=== PATIENT | female | born 1970 | race Caucasian/White ===

== ENCOUNTER 2016-06-30 03:58 | Emergency (ER) | payer OTHER ==
[2016-06-30] MEDS ORDERED: PENICILLIN V POTASSIUM 500 MG TAB As Ordered ONE (05:39)
--- NOTE | 2016-06-30 05:53 | EDDOCDS ---
Physician Documentation [facility] Name: Kamilla Bravo Age: 46 yrs Sex: Female : 1970 Arrival Date: 06/30/2016 Time: 03:58 Bed 9 Private MD: Ron Pulido P. Disposition: 06/30/16 05:44 Discharged to Home/Self Care. Impression: Acute pharyngitis. - Condition is Stable. - Prescriptions for penicillin V potassium 500 mg Oral Tablet - take 1 tablet by ORAL route 4 times per day for 10 days; 40 tablet. - Medication Reconciliation, Local Pharmacy Hours form. - Follow up: Ron Pulido; When: Call to arrange an appointment; Reason: Recheck today's complaints. - Problem is new. - Symptoms have improved. Historical: - Allergies: No known drug Allergies; - Home Meds: 1. Ibuprofen 220 mg Oral 1 tab (Last dose: 06/30/2016 02:00) - PMHx: none; - PSHx: Tonsillectomy; - Social history: Smoking status: Patient states former smoker of tobacco. No barriers to communication noted, The patient speaks fluent Niuean, Speaks appropriately for age. - Family history: Not pertinent. - : The pt / caregiver states he / she is not on anticoagulants. Home medication list is obtained from the patient. - Exposure Risk Screening:: None identified. 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 4 in. (162.56 cm); Pain 8/10; 05:50 BP 132 / 78; Pulse 88; Resp 18; Temp 100.0(TE); Pulse Ox 98% on R/A; Pain 7/10; braxton 04:05 Body Mass Index 29.18 (77.11 kg, 162.56 cm) ko2 MDM: 04:18 [facility] Payment Agreement was scanned into [employer] and attached to record. [facility] 05:38 Penicillin VK 1000 mg PO once ordered. [facility] 05:39 Financial registration complete. [facility] Administered Medications: 05:42 Drug: Penicillin VK 1000 mg [penicillin V potassium 250 mg tablet (4 tabs)] Route: PO; [facility] Signatures: Karin Almaguer, RN RN Samson Fields, DO cs11 Chante Thakkar LPN LPN Kelsey John RN RN Dena Handy [facility] The chart was reviewed and I authenticate all verbal orders and agree with the evaluation and treatment provided.Corrections: (The following items were deleted from the chart) 05:35 05:35 Strep Screen, Nursing ordered. jun Attachments: 04:18 [facility] Payment Agreement [facility] MTDD
--- NOTE | 2016-06-30 05:53 | EDDOCDS ---
Nurse's Notes [facility] Name: Kamilla Bravo Age: 46 yrs Sex: Female : 1970 Arrival Date: 06/30/2016 Time: 03:58 Bed 9 Private MD: Ron Pulido P. Diagnosis: Acute pharyngitis Presentation: 06/30 04:07 Presenting complaint: Patient states: developed "swollen throat" yesterday. it "hurts ko2 to swallow. I had chills and body aches last night and a headache that wouldn't go away". Risk factors: Stridor is not present. Drooling is not present. Shortness of breath is not present. Cellulitis is not present. Adult Sepsis Screening: The patient does not have new or worsening altered mentation. Patient's respiratory rate is less than 22. Systolic blood pressure is greater than 100. Patient has a qSOFA score of 0- Negative Sepsis Screen. Suicide/Homicide risk assessment- the patient denies having any suicidal and/or homicidal ideations and does not present with any other emotional, behavioral or mental health complaints. Status: The patient is a dependent. retired. Transition of care: patient was not received from another setting of care. 04:07 Acuity: DEIRDRE Level 4 ko2 04:07 Method Of Arrival: Walkin/Carried/Asstd ko2 Triage Assessment: 04:10 General: Appears uncomfortable, Behavior is appropriate for age, cooperative. Pain: ko2 Location: throat, head and body aches Pain currently is 8 out of 10 on a pain scale. HIV screening NA for this visit Offered previously. Neurological: Level of Consciousness is awake, alert. EENT: Reports pain when swallowing Pain is 8 out of 10 on a pain scale. Respiratory: Airway is patent Respiratory effort is even, unlabored. Derm: Skin is normal. 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 Ibuprofen 220 mg Oral 1 tab (Last dose: 06/30/2016 02:00) - PMHx: none; - PSHx: Tonsillectomy; - Social history: Smoking status: Patient states former smoker of tobacco. No barriers to communication noted, The patient speaks fluent Slovak, Speaks appropriately for age. - Family history: Not pertinent. - : The pt / caregiver states he / she is not on anticoagulants. Home medication list is obtained from the patient. - Exposure Risk Screening:: None identified. Screenin:11 Screening information is obtained from the patient. Fall risk: No risks identified. ko2 Assistance ADL's: requires no assistance with activities of daily living. Abuse/DV Screen: The patient / caregiver reports he/she is: not in a situation that causes fear, pain or injury. Nutritional screening: No deficits noted. Advance Directives: Currently, there is no health care proxy. There is no active DNR order. There is no living will. There is no Power of Cheese Tester. home support is adequate. Assessment: 05:31 Adult Sepsis Screening: The patient does not have new or worsening altered mentation. yadiel Patient's respiratory rate is less than 22. Systolic blood pressure is greater than 100. Patient has a qSOFA score of 0- Negative Sepsis Screen. General: Appears uncomfortable, Behavior is cooperative, pleasant. Pain: Location: throat Pain currently is 8 out of 10 on a pain scale. Pain began gradually Aggravated by eating, drinking. Neurological: No deficits noted. EENT: Throat is reddened has enlarged tonsils on right on left bilaterally. Cardiovascular: Capillary refill < 3 seconds Heart tones S1 S2 present. Respiratory: Airway is patent Respiratory effort is even, unlabored, Respiratory pattern is regular, symmetrical, Breath sounds are clear bilaterally. GI: No deficits noted. : No deficits noted. Derm: Skin is pink, warm & dry. 05:51 Reassessment: Patient appears in no apparent distress at this time. [facility] Vital Signs: 04:05 BP 126 / 75; Pulse 92; Resp 18; Temp 99.1(O); Pulse Ox 97% ; Weight 77.11 kg; Height 5 ko2 ft. 4 in. (162.56 cm); Pain 8/10; 05:50 BP 132 / 78; Pulse 88; Resp 18; Temp 100.0(TE); Pulse Ox 98% on R/A; Pain 7/10; braxton 04:05 Body Mass Index 29.18 (77.11 kg, 162.56 cm) [facility] Vitals: 04:05 Log In Time: June 30, 2016 at 03:58. 2 ED Course: 03:59 Patient visited by Montondo, Galileo, Reg. pm4 03:59 Patient moved to Waiting pm4 04:00 Ron Pulido is Private Physician. pm4 04:04 Patient moved to Triage 1 ko2 04:09 Triage Initiated ko2 04:12 Patient moved to Waiting ko2 04:18 [facility] Payment Agreement was scanned into [employer] and attached to record. [facility] 05:26 Kelsey Kemp,RN is Primary Nurse. jun 05:26 Patient moved to 9 jun 05:31 The patient / caregiver is instructed regarding the plan of care and ED course. Patient yadiel has correct armband on for positive identification. Bed in low position. Call light in reach. 05:34 Samson Shen DO is Attending Physician. cs11 05:34 Patient visited by Samson Shen DO. cs11 05:44 Ron Pulido is Referral Physician. cs11 05:50 Patient visited by Katherine Dempsey PCA. braxton 05:52 Patient visited by Chante Thakkar LPN. slm 05:52 No IV's were initiated during this patient's visit. No procedures done that require slm assistance. Administered Medications: 05:42 Drug: Penicillin VK 1000 mg [penicillin V potassium 250 mg tablet (4 tabs)] Route: PO; slm Order Results: There are currently no results for this order. Outcome: 05:44 Discharge ordered by Provider. cs11 05:51 Discharge Assessment: Patient awake, alert and oriented x 3. No cognitive and/or slm functional deficits noted. Patient verbalized understanding of disposition instructions. patient administered narcotics - no. The following High Risk Discharge criteria are identified: None. Discharged to home ambulatory. Condition: good. Discharge instructions given to patient, Instructed on discharge instructions, follow up and referral plans. medication usage, Demonstrated understanding of instructions, medications, Pt was receptive of discharge instructions/ teaching. Prescriptions given X 1. No special radiology studies were completed. Property :Personal belongings accompany Pt. 05:52 Patient left the ED. slm Signatures: Karin Almaguer RN RN jan Ewald, Destiny, PCA CHILDREN LIBRARIAN braxton Samson Shen DO DO cs11 Chante Thakkar LPN LPN [facility] Kelsey Kemp RN RN ko2 Hook, Sandra [facility] Galileo Arana, Reg Reg pm4 MTDD
--- NOTE | 2016-07-02 06:54 | EDDOCDS ---
Physician Documentation [facility] Name: Kamilla Bravo Age: 46 yrs Sex: Female : 1970 Arrival Date: 06/30/2016 Time: 03:58 Bed 9 Private MD: Ron Pulido P. Disposition: 06/30/16 05:44 Discharged to Home/Self Care. Impression: Acute pharyngitis. - Condition is Stable. - Prescriptions for penicillin V potassium 500 mg Oral Tablet - take 1 tablet by ORAL route 4 times per day for 10 days; 40 tablet. - Medication Reconciliation, Local Pharmacy Hours form. - Follow up: Ron Pulido; When: Call to arrange an appointment; Reason: Recheck today's complaints. - Problem is new. - Symptoms have improved. Historical: - Allergies: No known drug Allergies; - Home Meds: 1. Ibuprofen 220 mg Oral 1 tab (Last dose: 06/30/2016 02:00) - PMHx: none; - PSHx: Tonsillectomy; - Social history: Smoking status: Patient states former smoker of tobacco. No barriers to communication noted, The patient speaks fluent Tajik, Speaks appropriately for age. - Family history: Not pertinent. - : The pt / caregiver states he / she is not on anticoagulants. Home medication list is obtained from the patient. - Exposure Risk Screening:: None identified. 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 4 in. (162.56 cm); Pain 8/10; 05:50 BP 132 / 78; Pulse 88; Resp 18; Temp 100.0(TE); Pulse Ox 98% on R/A; Pain 7/10; braxton 04:05 Body Mass Index 29.18 (77.11 kg, 162.56 cm) ko2 MDM: 04:18 [facility] Payment Agreement was scanned into [employer] and attached to record. [facility] 05:38 Penicillin VK 1000 mg PO once ordered. [facility] 05:39 Financial registration complete. [facility] 14:30 T-Sheet-- Draft Copy was scanned into [employer] and attached to record. gb Administered Medications: 05:42 Drug: Penicillin VK 1000 mg [penicillin V potassium 250 mg tablet (4 tabs)] Route: PO; [facility] Signatures: Karin Almaguer RN RN Alysa Ly, Reg Reg Samson Rolle, DO HOLDER cs11 Chante Thakkar LPN AIRCRAFT ELECTRICIAN [facility] Kelsey Kemp RN RN ko2 Dena Rich [facility] The chart was reviewed and I authenticate all verbal orders and agree with the evaluation and treatment provided.Corrections: (The following items were deleted from the chart) 05:35 05:35 Strep Screen, Nursing ordered. jun Attachments: 04:18 [facility] Payment Agreement [facility] 14:30 T-Sheet-- Draft Copy Chart Complete MTDD
--- NOTE | 2016-07-02 06:54 | EDDOCDS ---
Nurse's Notes [facility] Name: Kamilla Bravo Age: 46 yrs Sex: Female : 1970 Arrival Date: 06/30/2016 Time: 03:58 Bed 9 Private MD: Ron Pulido P. Diagnosis: Acute pharyngitis Presentation: 06/30 04:07 Presenting complaint: Patient states: developed "swollen throat" yesterday. it "hurts ko2 to swallow. I had chills and body aches last night and a headache that wouldn't go away". Risk factors: Stridor is not present. Drooling is not present. Shortness of breath is not present. Cellulitis is not present. Adult Sepsis Screening: The patient does not have new or worsening altered mentation. Patient's respiratory rate is less than 22. Systolic blood pressure is greater than 100. Patient has a qSOFA score of 0- Negative Sepsis Screen. Suicide/Homicide risk assessment- the patient denies having any suicidal and/or homicidal ideations and does not present with any other emotional, behavioral or mental health complaints. Status: The patient is a dependent. retired. Transition of care: patient was not received from another setting of care. 04:07 Acuity: DEIRDRE Level 4 ko2 04:07 Method Of Arrival: Walkin/Carried/Asstd ko2 Triage Assessment: 04:10 General: Appears uncomfortable, Behavior is appropriate for age, cooperative. Pain: ko2 Location: throat, head and body aches Pain currently is 8 out of 10 on a pain scale. HIV screening NA for this visit Offered previously. Neurological: Level of Consciousness is awake, alert. EENT: Reports pain when swallowing Pain is 8 out of 10 on a pain scale. Respiratory: Airway is patent Respiratory effort is even, unlabored. Derm: Skin is normal. 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 Ibuprofen 220 mg Oral 1 tab (Last dose: 06/30/2016 02:00) - PMHx: none; - PSHx: Tonsillectomy; - Social history: Smoking status: Patient states former smoker of tobacco. No barriers to communication noted, The patient speaks fluent Japanese, Speaks appropriately for age. - Family history: Not pertinent. - : The pt / caregiver states he / she is not on anticoagulants. Home medication list is obtained from the patient. - Exposure Risk Screening:: None identified. Screenin:11 Screening information is obtained from the patient. Fall risk: No risks identified. ko2 Assistance ADL's: requires no assistance with activities of daily living. Abuse/DV Screen: The patient / caregiver reports he/she is: not in a situation that causes fear, pain or injury. Nutritional screening: No deficits noted. Advance Directives: Currently, there is no health care proxy. There is no active DNR order. There is no living will. There is no Power of Narrow Gauge Engineer. home support is adequate. Assessment: 05:31 Adult Sepsis Screening: The patient does not have new or worsening altered mentation. yadiel Patient's respiratory rate is less than 22. Systolic blood pressure is greater than 100. Patient has a qSOFA score of 0- Negative Sepsis Screen. General: Appears uncomfortable, Behavior is cooperative, pleasant. Pain: Location: throat Pain currently is 8 out of 10 on a pain scale. Pain began gradually Aggravated by eating, drinking. Neurological: No deficits noted. EENT: Throat is reddened has enlarged tonsils on right on left bilaterally. Cardiovascular: Capillary refill < 3 seconds Heart tones S1 S2 present. Respiratory: Airway is patent Respiratory effort is even, unlabored, Respiratory pattern is regular, symmetrical, Breath sounds are clear bilaterally. GI: No deficits noted. : No deficits noted. Derm: Skin is pink, warm & dry. 05:51 Reassessment: Patient appears in no apparent distress at this time. [facility] Vital Signs: 04:05 BP 126 / 75; Pulse 92; Resp 18; Temp 99.1(O); Pulse Ox 97% ; Weight 77.11 kg; Height 5 ko2 ft. 4 in. (162.56 cm); Pain 8/10; 05:50 BP 132 / 78; Pulse 88; Resp 18; Temp 100.0(TE); Pulse Ox 98% on R/A; Pain 7/10; braxton 04:05 Body Mass Index 29.18 (77.11 kg, 162.56 cm) [facility] Vitals: 04:05 Log In Time: June 30, 2016 at 03:58. 2 ED Course: 03:59 Patient visited by Montondo, Galileo, Reg. pm4 03:59 Patient moved to Waiting pm4 04:00 Ron Pulido is Private Physician. pm4 04:04 Patient moved to Triage 1 ko2 04:09 Triage Initiated ko2 04:12 Patient moved to Waiting ko2 04:18 [facility] Payment Agreement was scanned into [employer] and attached to record. [facility] 05:26 Kelsey Kemp,RN is Primary Nurse. jun 05:26 Patient moved to 9 jun 05:31 The patient / caregiver is instructed regarding the plan of care and ED course. Patient yadiel has correct armband on for positive identification. Bed in low position. Call light in reach. 05:34 Samson Shen DO is Attending Physician. cs11 05:34 Patient visited by Samson Shen DO. cs11 05:44 Ron Pulido is Referral Physician. cs11 05:50 Patient visited by Katherine Dempsey PCA. braxton 05:52 Patient visited by Chante Thakkar LPN. slm 05:52 No IV's were initiated during this patient's visit. No procedures done that require slm assistance. 14:30 T-Sheet-- Draft Copy was scanned into [employer] and attached to record. gb Administered Medications: 05:42 Drug: Penicillin VK 1000 mg [penicillin V potassium 250 mg tablet (4 tabs)] Route: PO; slm Order Results: There are currently no results for this order. Outcome: 05:44 Discharge ordered by Provider. cs11 05:51 Discharge Assessment: Patient awake, alert and oriented x 3. No cognitive and/or slm functional deficits noted. Patient verbalized understanding of disposition instructions. patient administered narcotics - no. The following High Risk Discharge criteria are identified: None. Discharged to home ambulatory. Condition: good. Discharge instructions given to patient, Instructed on discharge instructions, follow up and referral plans. medication usage, Demonstrated understanding of instructions, medications, Pt was receptive of discharge instructions/ teaching. Prescriptions given X 1. No special radiology studies were completed. Property :Personal belongings accompany Pt. 05:52 Patient left the ED. slm Signatures: Karin Almaguer RN RN jan Barnhardt, Gloria, Reg Reg gb Katherine Dempsey PCA SURGERY SCHEDULING COORDINATOR braxton Samson Sehn DO DO cs11 Chante Thakkar LPN LPN slKelsey John,MARISOL RN ko2 Dena Rich slGalileo Whitney, Reg Reg pm4 Chart Complete MTDD
--- NOTE | 2016-07-02 06:54 | EDDOCDS ---
Physician Documentation [facility] Name: Kamilla Bravo Age: 46 yrs Sex: Female : 1970 Arrival Date: 06/30/2016 Time: 03:58 Bed 9 Private MD: Ron Pulido P. Disposition: 06/30/16 05:44 Discharged to Home/Self Care. Impression: Acute pharyngitis. - Condition is Stable. - Prescriptions for penicillin V potassium 500 mg Oral Tablet - take 1 tablet by ORAL route 4 times per day for 10 days; 40 tablet. - Medication Reconciliation, Local Pharmacy Hours form. - Follow up: Ron Pulido; When: Call to arrange an appointment; Reason: Recheck today's complaints. - Problem is new. - Symptoms have improved. Historical: - Allergies: No known drug Allergies; - Home Meds: 1. Ibuprofen 220 mg Oral 1 tab (Last dose: 06/30/2016 02:00) - PMHx: none; - PSHx: Tonsillectomy; - Social history: Smoking status: Patient states former smoker of tobacco. No barriers to communication noted, The patient speaks fluent Norwegian, Speaks appropriately for age. - Family history: Not pertinent. - : The pt / caregiver states he / she is not on anticoagulants. Home medication list is obtained from the patient. - Exposure Risk Screening:: None identified. 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 4 in. (162.56 cm); Pain 8/10; 05:50 BP 132 / 78; Pulse 88; Resp 18; Temp 100.0(TE); Pulse Ox 98% on R/A; Pain 7/10; braxton 04:05 Body Mass Index 29.18 (77.11 kg, 162.56 cm) ko2 MDM: 04:18 [facility] Payment Agreement was scanned into [employer] and attached to record. [facility] [address] 05:38 Penicillin VK 1000 mg PO once ordered. [facility] 05:39 Financial registration complete. [facility] [address] 14:30 T-Sheet-- Draft Copy was scanned into [employer] and attached to record. gb Administered Medications: 05:42 Drug: Penicillin VK 1000 mg [penicillin V potassium 250 mg tablet (4 tabs)] Route: PO; [facility] Signatures: Karin Almaguer RN RN Alysa Ly, Reg Reg Samson Rolle, DO HOLDER cs11 Chante Thakkar LPN GOLF CLUB REPAIRER [facility] Kelsey Kemp RN RN ko2 Dena Rich [facility] [address] The chart was reviewed and I authenticate all verbal orders and agree with the evaluation and treatment provided.Corrections: (The following items were deleted from the chart) 05:35 05:35 Strep Screen, Nursing ordered. jun Attachments: 04:18 [facility] Payment Agreement [facility] [address] 14:30 T-Sheet-- Draft Copy Chart Complete MTDD
== END 2016-06-30 05:52 | disposition home or self-care (01) ==
LOC: M ED 03:58
DX: J02.9 Acute pharyngitis, unspecified (principal); Z90.89 Acquired absence of other organs; Z87.891 Personal history of nicotine dependence

== ENCOUNTER → 2018-03-12 | Outpatient (REF) | payer OTHER ==
[2018-03-12 14:42] LABS: CHLAMYDIA DNA AMPLIFICATION NEGATIVE (NEGATIVE); GC DNA AMPLIFICATION NEGATIVE (NEGATIVE)
[2018-03-16 14:16] LABS: HPV HYBRID CAPTURE II Negative (Negative)
== END ==
LOC: M LAB REF 12:52
DX: Z01.419 Encounter for gynecological examination (general) (routine) without abnormal findings (principal)

== ENCOUNTER → 2019-06-21 | Outpatient (REF) | payer OTHER ==
[2019-06-21 11:50] LABS: BASO # 0.1 10^3/uL (0.0-0.2); BASO % 0.8 % (0.0-1.0); EOS # 0.2 10^3/uL (0.0-0.5); EOS % 2.6 % (0.0-3.0); HEMATOCRIT 42.9 % (36.0-47.0); HEMOGLOBIN 13.4 g/dl (12.0-15.5); LYMPH # 1.8 10^3/uL (1.5-5.0); LYMPH % 28.3 % (24.0-44.0); MEAN CORPUSCULAR HEMOGLOBIN 29.7 pg (27.0-33.0); MEAN CORPUSCULAR HGB CONC 31.2 g/dl (32.0-36.5); MEAN CORPUSCULAR VOLUME 95.1 fl (80.0-96.0); MONO # 0.5 10^3/uL (0.0-0.8); MONO % 7.5 % (0.0-5.0); NEUTROPHILS # 3.9 10^3/uL (1.5-8.5); NEUTROPHILS % 60.5 % (36.0-66.0); RED BLOOD COUNT 4.51 10^6/uL (4.00-5.40); WHITE BLOOD COUNT 6.4 10^3/uL (4.0-10.0)
[2019-06-21 12:03] LABS: ALBUMIN 3.7 GM/DL (3.2-5.2); ALT/SGPT 24 U/L (12-78); BILIRUBIN,TOTAL 0.6 MG/DL (0.2-1.0); BLOOD UREA NITROGEN 17 MG/DL (7-18); CALCIUM LEVEL 8.6 MG/DL (8.5-10.1); CARBON DIOXIDE LEVEL 26 MEQ/L (21-32); CHLORIDE LEVEL 107 MEQ/L (98-107); CHOLESTEROL LEVEL 186 MG/DL (<200); CHOLESTEROL RISK RATIO 3.321 (<5); CREATININE FOR GFR 0.87 MG/DL (0.55-1.30); GLOMERULAR FILTRATION RATE > 60.0 (>58); GLUCOSE, FASTING 103 MG/DL (70-100); HDL CHOLESTEROL 56 MG/DL (>40); LDL CHOLESTEROL 117 MG/DL (<100); NON-HDL-C 130 MG/DL; POTASSIUM SERUM 4.1 MEQ/L (3.5-5.1); SODIUM LEVEL 140 MEQ/L (136-145); TOTAL PROTEIN 7.4 GM/DL (6.4-8.2); TRIGLYCERIDES LEVEL 66 MG/DL (<150)
== END ==
LOC: M SFHCLERA 08:06
PROVIDERS: ATTEND Nurse Practitioner Family
DX: Z13.220 Encounter for screening for lipoid disorders (principal); R03.0 Elevated blood-pressure reading, without diagnosis of hypertension

== ENCOUNTER → 2021-01-15 | Outpatient (REF) | payer OTHER | LOC: M SFHCLERA 16:26 | PROVIDERS: ATTEND Nurse Practitioner Family | DX: Z12.4 Encounter for screening for malignant neoplasm of cervix (principal) | CPT/HCPCS: G0123; G0463 ==

== ENCOUNTER → 2021-07-25 | Outpatient (CLI) | payer OTHER | LOC: M WHC 07:58 | PROVIDERS: ATTEND Nurse Practitioner Family | DX: Z12.31 Encounter for screening mammogram for malignant neoplasm of breast (principal) ==

== ENCOUNTER → 2021-10-10 | Outpatient (CLI) | payer OTHER | LOC: M SLEEP 20:00 | PROVIDERS: ATTEND Nurse Practitioner Acute Care | DX: G47.33 Obstructive sleep apnea (adult) (pediatric) (principal) ==

== ENCOUNTER → 2022-07-22 | Outpatient (CLI) | payer OTHER ==
[2022-07-22 10:55] LABS: BASO % 0.8 % (0.0-1.0); EOS # 0.1 10^3/uL (0.0-0.5); EOS % 2.5 % (0.0-3.0); HEMATOCRIT 41.9 % (36.0-47.0); HEMOGLOBIN 13.2 g/dl (12.0-15.5); LYMPH % 39.3 % (24.0-44.0); MEAN CORPUSCULAR HEMOGLOBIN 29.3 pg (27.0-33.0); MEAN CORPUSCULAR HGB CONC 31.5 g/dl (32.0-36.5); MEAN CORPUSCULAR VOLUME 93.1 fl (80.0-96.0); MONO # 0.6 10^3/uL (0.0-0.8); MONO % 11.6 % (2.0-8.0); NEUTROPHILS # 2.3 10^3/uL (1.5-8.5); NEUTROPHILS % 44.8 % (36.0-66.0); PLATELET COUNT, AUTOMATED 136 10^3/uL (150-450); WHITE BLOOD COUNT 5.2 10^3/uL (4.0-10.0)
[2022-07-22 12:43] LABS: ALBUMIN 3.6 G/DL (3.2-5.2); ALKALINE PHOSPHATASE 85 U/L (46-116); ALT/SGPT 50 U/L (7.0-40); AST/SGOT 30 U/L (<34); BILIRUBIN,TOTAL 0.5 MG/DL (0.3-1.2); BLOOD UREA NITROGEN 13 MG/DL (9-23); CALCIUM LEVEL 9.2 MG/DL (8.5-10.1); CARBON DIOXIDE LEVEL 29 MMOL/L (20-31); CHLORIDE LEVEL 106 MMOL/L (98-107); CHOLESTEROL LEVEL 166 MG/DL (<200); CHOLESTEROL RISK RATIO 3.95 (<5); CREATININE FOR GFR 0.76 MG/DL (0.55-1.30); GLOMERULAR FILTRATION RATE > 60.0 (>51); GLUCOSE, FASTING 97 MG/DL (60-100); LDL CHOLESTEROL 103.4 MG/DL (<100); NON-HDL-C 124 MG/DL; POTASSIUM SERUM 4.2 MMOL/L (3.5-5.1); SODIUM LEVEL 139 MMOL/L (136-145); TOTAL PROTEIN 7.2 G/DL (5.7-8.2); TRIGLYCERIDES LEVEL 103 MG/DL (<150)
== END ==
LOC: M PLALAB 08:56
PROVIDERS: ATTEND Student in an Organized Health Care Education/Training Program
DX: R03.0 Elevated blood-pressure reading, without diagnosis of hypertension (principal); Z76.89 Persons encountering health services in other specified circumstances

== ENCOUNTER → 2022-07-22 | Outpatient (CLI) | payer OTHER | LOC: M WHC 08:02 | PROVIDERS: ATTEND Student in an Organized Health Care Education/Training Program | DX: Z12.31 Encounter for screening mammogram for malignant neoplasm of breast (principal); Z80.3 Family history of malignant neoplasm of breast; R03.0 Elevated blood-pressure reading, without diagnosis of hypertension; Z76.89 Persons encountering health services in other specified circumstances ==

== ENCOUNTER → 2022-12-11 | Outpatient (CLI) | payer OTHER | LOC: M WHC 13:30 | PROVIDERS: ATTEND Student in an Organized Health Care Education/Training Program | DX: N64.4 Mastodynia (principal) ==

== ENCOUNTER → 2023-08-20 | Outpatient (CLI) | payer OTHER | LOC: M SOG 08:09 | PROVIDERS: ATTEND Physician Assistant | DX: M25.571 Pain in right ankle and joints of right foot (principal) ==

== ENCOUNTER → 2023-08-21 | Outpatient (CLI) | payer OTHER ==
[2023-08-21 12:11] LABS: BASO # 0.1 10^3/uL (0.0-0.2); BASO % 1.1 % (0.0-1.0); EOS # 0.2 10^3/uL (0.0-0.5); HEMATOCRIT 42.8 % (36.0-47.0); HEMOGLOBIN 13.8 g/dl (12.0-15.5); LYMPH # 1.9 10^3/uL (1.5-5.0); LYMPH % 34.6 % (24.0-44.0); MEAN CORPUSCULAR HEMOGLOBIN 30.8 pg (27.0-33.0); MEAN CORPUSCULAR HGB CONC 32.2 g/dl (32.0-36.5); MEAN CORPUSCULAR VOLUME 95.5 fl (80.0-96.0); MONO # 0.4 10^3/uL (0.0-0.8); MONO % 7.7 % (2.0-8.0); NEUTROPHILS % 53.4 % (36.0-66.0); RED BLOOD COUNT 4.48 10^6/uL (4.00-5.40); WHITE BLOOD COUNT 5.6 10^3/uL (4.0-10.0)
[2023-08-21 12:43] LABS: THYROID STIMULATING HORMONE 1.188 uIU/ML (0.55-4.78)
[2023-08-21 12:44] LABS: TOTAL 25(OH) VITAMIN D 32.3 NG/ML (20.0-100.0)
[2023-08-21 12:47] LABS: ALBUMIN 3.7 G/DL (3.2-5.2); ALKALINE PHOSPHATASE 94 U/L (46-116); ALT/SGPT 30 U/L (7.0-40); AST/SGOT 15 U/L (<34); BILIRUBIN,TOTAL 0.4 MG/DL (0.3-1.2); BLOOD UREA NITROGEN 14 MG/DL (9-23); CALCIUM LEVEL 8.6 MG/DL (8.5-10.1); CARBON DIOXIDE LEVEL 28 MMOL/L (20-31); CHLORIDE LEVEL 107 MMOL/L (98-107); CHOLESTEROL LEVEL 149 MG/DL (<200); CHOLESTEROL RISK RATIO 3.63 (<5); CREATININE FOR GFR 0.82 MG/DL (0.55-1.30); GLOMERULAR FILTRATION RATE > 60.0 (>51); GLUCOSE, FASTING 89 MG/DL (60-100); LDL CHOLESTEROL 93.2 MG/DL (<100); POTASSIUM SERUM 4.5 MMOL/L (3.5-5.1); SODIUM LEVEL 142 MMOL/L (136-145); TRIGLYCERIDES LEVEL 74 MG/DL (<150)
== END ==
LOC: M WUC 08:22
PROVIDERS: ATTEND Physician Assistant
DX: Z00.00 Encounter for general adult medical examination without abnormal findings (principal); Z13.6 Encounter for screening for cardiovascular disorders; Z11.3 Encounter for screening for infections with a predominantly sexual mode of transmission; Z11.59 Encounter for screening for other viral diseases; Z13.220 Encounter for screening for lipoid disorders; R00.2 Palpitations

== ENCOUNTER 2023-11-17 11:44 | Day surgery (SDC) | payer OTHER ==
[~2023-11-17] VITALS: Ht 162.6 cm; Wt 86.5 kg
[2023-11-17] MEDS: NS 1,000 ML IV ONE (12:57)
[2023-11-17] MEDS ORDERED: propofoL 200 MG/20 ML VIAL As Ordered ONE (13:05)
[2023-11-17] MEDS ORDERED: LIDOCAINE 2% 100MG/5ML SDV (FOR ANES.) As Ordered ONE (13:05)
[2023-11-17 14:08] VITALS: BP 151/88; TEMP 97.8; O2SAT 100
== END 2023-11-17 14:12 | disposition home or self-care (01) ==
LOC: M OPP 11:44
PROVIDERS: ATTEND Internal Medicine Gastroenterology
DX: K64.8 Other hemorrhoids (principal); R19.4 Change in bowel habit; G47.30 Sleep apnea, unspecified; Z99.89 Dependence on other enabling machines and devices; Z87.891 Personal history of nicotine dependence

== ENCOUNTER → 2024-02-12 | Outpatient (CLI) | payer OTHER | LOC: M WHC 14:08 | PROVIDERS: ATTEND Physician Assistant | DX: Z12.31 Encounter for screening mammogram for malignant neoplasm of breast (principal); R92.333 Mammographic heterogeneous density, bilateral breasts ==

== ENCOUNTER → 2024-07-01 | Outpatient (REF) | payer OTHER ==
[2024-07-01 17:24] LABS: BASO # 0.1 10^3/uL (0.0-0.2); BASO % 0.9 % (0.0-1.0); EOS # 0.2 10^3/uL (0.0-0.5); EOS % 2.9 % (0.0-3.0); HEMATOCRIT 42.4 % (36.0-47.0); HEMOGLOBIN 13.5 g/dl (12.0-15.5); LYMPH # 1.8 10^3/uL (1.5-5.0); LYMPH % 31.7 % (24.0-44.0); MEAN CORPUSCULAR HEMOGLOBIN 29.7 pg (27.0-33.0); MEAN CORPUSCULAR HGB CONC 31.8 g/dl (32.0-36.5); MEAN CORPUSCULAR VOLUME 93.4 fl (80.0-96.0); MONO # 0.3 10^3/uL (0.0-0.8); MONO % 4.8 % (2.0-8.0); NEUTROPHILS # 3.4 10^3/uL (1.5-8.5); NEUTROPHILS % 59.2 % (36.0-66.0); RED BLOOD COUNT 4.54 10^6/uL (4.00-5.40); WHITE BLOOD COUNT 5.8 10^3/uL (4.0-10.0)
[2024-07-01 17:50] LABS: ALBUMIN 3.6 G/DL (3.2-5.2); ALKALINE PHOSPHATASE 95 U/L (35-104); ALT/SGPT 36 U/L (7.0-40); AST/SGOT 16 U/L (<34); BILIRUBIN,TOTAL 0.4 MG/DL (0.3-1.2); BLOOD UREA NITROGEN 21 MG/DL (9-23); CALCIUM LEVEL 8.8 MG/DL (8.5-10.1); CARBON DIOXIDE LEVEL 26 MMOL/L (20-31); CHLORIDE LEVEL 108 MMOL/L (98-107); CHOLESTEROL LEVEL 192 MG/DL (<200); CHOLESTEROL RISK RATIO 3.95 (<5); CREATININE FOR GFR 0.83 MG/DL (0.55-1.30); GLOMERULAR FILTRATION RATE > 60.0 (>51); GLUCOSE, FASTING 96 MG/DL (60-100); HDL CHOLESTEROL 48.5 MG/DL (>40); LDL CHOLESTEROL 117.9 MG/DL (<100); NON-HDL-C 143.5 MG/DL; POTASSIUM SERUM 4.4 MMOL/L (3.5-5.1); SODIUM LEVEL 142 MMOL/L (136-145); TOTAL PROTEIN 7.2 G/DL (5.7-8.2); TRIGLYCERIDES LEVEL 128 MG/DL (<150)
[2024-07-01 17:55] LABS: HEMOGLOBIN A1c 6.2 % (4.0-6.0)
== END ==
LOC: M SFHCLERA 08:30
DX: N95.1 Menopausal and female climacteric states (principal); G47.33 Obstructive sleep apnea (adult) (pediatric); I10 Essential (primary) hypertension; Z76.89 Persons encountering health services in other specified circumstances

== ENCOUNTER → 2024-10-02 | Outpatient (CLI) | payer OTHER | LOC: M LAB 10:54 | DX: R73.03 Prediabetes (principal) ==

== ENCOUNTER → 2025-01-03 | Outpatient (CLI) | payer OTHER ==
[2025-01-03 10:13] LABS: ESTIMATED AVERAGE GLUCOSE 126.0 MG/DL (60-110)
== END ==
LOC: M LAB 08:54
DX: R73.03 Prediabetes (principal)

== ENCOUNTER → 2025-02-13 | Outpatient (CLI) | payer OTHER | LOC: M WHC 13:41 | DX: Z12.31 Encounter for screening mammogram for malignant neoplasm of breast (principal) ==

== ENCOUNTER → 2025-05-03 | Outpatient (REF) | payer OTHER ==
[2025-05-03 17:47] LABS: ALT/SGPT 34 U/L (7.0-40); AST/SGOT 22 U/L (<34); CALCIUM LEVEL 8.5 MG/DL (8.5-10.1); CARBON DIOXIDE LEVEL 26 MMOL/L (20-31); CHLORIDE LEVEL 107 MMOL/L (98-107); CHOLESTEROL LEVEL 178 MG/DL (<200); CHOLESTEROL RISK RATIO 3.56 (<5); CREATININE FOR GFR 0.77 MG/DL (0.55-1.30); GLOMERULAR FILTRATION RATE > 90.0 (>51); LDL CHOLESTEROL 109.9 MG/DL (<100); NON-HDL-C 128.1 MG/DL; POTASSIUM SERUM 4.0 MMOL/L (3.5-5.1); SODIUM LEVEL 143 MMOL/L (136-145); TRIGLYCERIDES LEVEL 91 MG/DL (<150)
[2025-05-03 17:48] LABS: BASO # 0.1 10^3/uL (0.0-0.2); BASO % 0.7 % (0.0-1.0); EOS # 0.2 10^3/uL (0.0-0.5); EOS % 2.9 % (0.0-3.0); LYMPH # 2.1 10^3/uL (1.5-5.0); LYMPH % 30.5 % (24.0-44.0); MONO # 0.4 10^3/uL (0.0-0.8); MONO % 5.8 % (2.0-8.0); NEUTROPHILS # 4.1 10^3/uL (1.5-8.5); NEUTROPHILS % 59.8 % (36.0-66.0)
[2025-05-03 18:04] LABS: ESTIMATED AVERAGE GLUCOSE 128.0 MG/DL (60-110)
== END ==
LOC: M SFHCLERA 14:05
PROVIDERS: ATTEND Internal Medicine
DX: R73.01 Impaired fasting glucose (principal)